=== PATIENT | male | born 1980 | race Hispanic/Latino ===

== ENCOUNTER 2018-03-04 21:32 | Emergency (ER) | payer SELFPAY ==
[2018-03-04 22:01] LABS: Bilirubin Negative (Negative); Blood, Urine Negative (Negative); Clarity CLEAR (Clear); Glucose, Urine (Dipstick) Negative (Negative); Leukocyte Negative (Negative); Nitrite Negative (Negative); Protein, Urine (Dipstick) Negative (Neg-Trace); Specific Gravity, Urine 1.015 (1.002-1.036); pH, Urine 7.5 (5.0-9.0)
[2018-03-04 22:25] LABS: #Eosinphils 0.2 thou/uL (0.0-0.7); #Monocytes 0.4 thou/uL (0.11-0.59); #Neutrophils 3.6 thou/uL (1.40-6.50); %Basophils 0.4 % (0.0-1.0); %Eosinophils 2.6 % (0.0-10.0); %Lymphocytes 32.2 % (21.0-51.0); %Monocytes 6.9 % (0.0-10.0); Hemoglobin 14.1 g/dL (14.0-18.0); Mean Corpuscular HGB CONC 33.7 g/dL (32.0-36.0); Mean Corpuscular Hemoglobin 30.4 pg (27.0-31.0); Mean Corpuscular Volume 90.2 fL (78.0-98.0); Platelet Count 253 thou/uL (130-400); RBC Distribution Width 12.1 % (11.5-14.5); Red Blood Cell (RBC) Count 4.64 mill/uL (4.70-6.10); White Blood Cell (WBC) Count 6.2 thou/uL (4.8-10.8)
[2018-03-04 22:45] LABS: ALT (SGPT) 15 U/L (8-55); AST (SGOT) 18 U/L (5-34); Albumin 4.3 g/dL (3.5-5.0); Alkaline Phosphatase 104 U/L (40-150); Anion Gap 12 mmol/L (10-20); BUN (Urea Nitrogen) 16 mg/dL (8.9-20.6); Bilirubin, Total 0.3 mg/dL (0.2-1.2); Calc. Creatinine Clearance 0 mL/min (70-130); Calcium 9.4 mg/dL (7.8-10.44); Carbon Dioxide 24 mmol/L (22-29); Chloride 107 mmol/L (98-107); Estimated GFR-MDRD Greater than 90; Globulin 3.4 g/dL (2.4-3.5); Glucose 125 mg/dL (70-105); Lipase 25 U/L (8-78); Potassium 3.9 mmol/L (3.5-5.1); Protein, Total 7.7 g/dL (6.0-8.3); Sodium 139 mmol/L (136-145)
[2018-03-04] MEDS ORDERED: Mag-Al 1200 mg/1200 mg/30 ML UDCUP ONE (23:29)
[2018-03-04] MEDS ORDERED: Lidocaine Viscous Sol 2% 15 ml UD Cup ONE (23:29)
[2018-03-05] MEDS ORDERED: Ketorolac Tromethamine 30 MG/ML VIAL ONE (00:08)
[2018-03-05] MEDS ORDERED: Morphine 4 MG/ML VIAL ONE (00:08)
--- NOTE | 2018-03-05 08:45 | CT ---
PRELIMINARY REPORT/[facility]/EMERGENTY AFTER-HOURS PROCEDURE CT Abdomen and Pelvis With Intravenous Contrast CLINICAL HISTORY: 37 years old, male; Pain; Abdominal pain; Localized; Lower; Patient HX: Er 3; 37 yo m presents to ed with abdominal pain. Pt reports abdominal pain that started centrally sunday night and migrated to ut s left flank earlier today. Pt reports associated nausea. Pt denies vomiting, denies any other medica l issues, denies HX of previous abd surgeries. Pt denies HX of smoking, reports HX of occasional alco hol use. TECHNIQUE: Axial computed tomography images of the abdomen and pelvis with intravenous contrast. Coronal reformatted images were created and reviewed. COMPARISON: No relevant prior studies available. FINDINGS: Lung bases: Normal. No mass. No consolidation. ABDOMEN: Liver: Normal. Gallbladder and bile ducts: Normal. Pancreas: Normal. Spleen: Normal. Adrenals: Normal. Kidneys and ureters: Normal. Stomach and bowel: Scattered colonic diverticulosis. Mild distention of the stomach with ingested con tents. PELVIS: Appendix: Appendix normal. Bladder: Normal. Reproductive: Normal as visualized. ABDOMEN and PELVIS: Intraperitoneal space: Normal. No free air. No significant fluid collection. Bones/joints: No acute fracture. No dislocation. Soft tissues: Small fat containing umbilical hernia. Vasculature: Normal. No abdominal aortic aneurysm. Lymph nodes: Normal. IMPRESSION: 1. No acute findings. 2. Non-acute findings are described above. Thank you for allowing us to participate in the care of your patient. Dictated and Authenticated by: Kash Schwartz MD 03/05/2018 1:23 AM Central Time ([place] & [place]) FINAL REPORT EMERGENCY AFTER HOURS CT ABDOMEN AND PELVIS PERFORMED WITH CONTRAST ENHANCEMENT: Date: 03/05/18 HISTORY: Abdominal pain, which has migrated to the left flank region. FINDINGS: The lung bases are clear. The liver, spleen, pancreas, and gallbladder regions all appear unremarkable. Right and left adrenal glands, and right and left kidneys are normal in size. There is no significant periaortic or mesenteric adenopathy. CT of pelvis was performed with contrast enhancement. The appendix appears unremarkable. Some minimal early diverticulosis changes. No inflammatory process. No free fluid. IMPRESSION: 1. No acute abnormalities of abdomen or pelvis. 2. Minimal sigmoid diverticulosis. This report is in agreement with the preliminary report issued by [facility]. POS: [facility]
[2018-03-05] MEDS ORDERED: ISOVUE-370 76%-LOCM 1 ML ONE (13:54)
== END 2018-03-05 01:49 | disposition home or self-care (01) ==
LOC: ERS 21:32
DX: R10.9 Unspecified abdominal pain (principal)
CPT/HCPCS: 36415; 74177; 80053; 81003; 83690; 85025; 96374; 96375; J1885; J2270

== ENCOUNTER 2018-03-18 18:24 | Emergency (ER) | payer SELFPAY ==
[2018-03-18 19:28] LABS: #Eosinphils 0.1 thou/uL (0.0-0.7); #Lymphocytes 1.5 thou/uL (1.20-3.40); #Monocytes 0.6 thou/uL (0.11-0.59); #Neutrophils 5.9 thou/uL (1.40-6.50); %Basophils 0.4 % (0.0-1.0); %Eosinophils 1.3 % (0.0-10.0); %Lymphocytes 18.3 % (21.0-51.0); Hemoglobin 14.2 g/dL (14.0-18.0); Mean Corpuscular HGB CONC 34.6 g/dL (32.0-36.0); Mean Corpuscular Hemoglobin 31.3 pg (27.0-31.0); Mean Corpuscular Volume 90.6 fL (78.0-98.0); Mean Platelet Volume 8.9 fL (7.4-10.4); Platelet Count 240 thou/uL (130-400); RBC Distribution Width 12.2 % (11.5-14.5); Red Blood Cell (RBC) Count 4.52 mill/uL (4.70-6.10); White Blood Cell (WBC) Count 8.1 thou/uL (4.8-10.8)
[2018-03-18 19:47] LABS: ALT (SGPT) 12 U/L (8-55); AST (SGOT) 19 U/L (5-34); Albumin 4.5 g/dL (3.5-5.0); Alkaline Phosphatase 96 U/L (40-150); Anion Gap 12 mmol/L (10-20); BUN (Urea Nitrogen) 16 mg/dL (8.9-20.6); Bilirubin, Total 0.3 mg/dL (0.2-1.2); Calc. Creatinine Clearance 0 mL/min (70-130); Calcium 9.7 mg/dL (7.8-10.44); Carbon Dioxide 22 mmol/L (22-29); Chloride 108 mmol/L (98-107); Estimated GFR-MDRD Greater than 90; Globulin 3.1 g/dL (2.4-3.5); Glucose 99 mg/dL (70-105); Potassium 4.1 mmol/L (3.5-5.1); Protein, Total 7.6 g/dL (6.0-8.3); Sodium 138 mmol/L (136-145)
[2018-03-18] MEDS ORDERED: Ketorolac Tromethamine 30 MG/ML VIAL ONE (20:25)
== END 2018-03-18 20:51 | disposition home or self-care (01) ==
LOC: ERS 18:24
DX: R20.2 Paresthesia of skin (principal)
CPT/HCPCS: 36415; 80053; 84443; 85025; 85652; 86140; 87804; 96372; J1885

== ENCOUNTER 2018-07-26 14:53 | Emergency (ER) | payer SELFPAY ==
--- NOTE | 2018-07-26 16:58 | RAD ---
FOUR VIEWS CERVICAL SPINE: 07/26/18 HISTORY: Left arm neuropathy. FINDINGS/IMPRESSION: C1 to the cervical thoracic junction is seen on the lateral and swimmer's views of the cervical spine . Vertebral body heights and intervertebral disc spaces are within normal limits. No fracture or subl uxation is seen involving the cervical spine. The prevertebral soft tissues are within normal limits. POS: [facility]
--- NOTE | 2018-07-26 17:04 | RAD ---
LUMBAR SPINE THREE VIEWS: 07/26/18 HISTORY: Left leg numbness. FINDINGS/IMPRESSION: No fracture, subluxation or bony destruction is seen. POS: [facility]
[2018-07-26] MEDS ORDERED: Dexamethasone 10 MG/ML VIAL ONE (17:50)
[2018-07-26] MEDS ORDERED: Ketorolac Tromethamine 60 MG/2 ML VIAL ONE (17:50)
== END 2018-07-26 18:19 | disposition home or self-care (01) ==
LOC: ERS 14:53
DX: G62.9 Polyneuropathy, unspecified (principal); Z79.899 Other long term (current) drug therapy
CPT/HCPCS: 72040; 72100; 96372; J1100; J1885